=== PATIENT | female | born 1940 | race Caucasian/White ===

== ENCOUNTER 2016-09-24 09:29 | Outpatient (CLI) | payer MEDICARE, OTHER ==
[2015-12-15 02:03] VITALS: BP 129/72
[2016-09-24 09:35] LABS: BASOPHILS % 0.3 (0.0-1.5); EOSINOPHILS % 1.7 % (0.0-6.8); LYMPHOCYTES # 1.2 # k/uL (0.6-4.0); MEAN CORPUSCULAR HEMOGLOBIN 32.9 pg (28.0-34.0); MONOCYTES # 0.3 # k/uL (0.0-0.9); MONOCYTES % 5.1 % (0.0-11.0); NEUTROPHILS # 3.4 # k/uL (1.4-7.7)
[2016-09-24 09:58] LABS: eGFR (African) > 60; eGFR (Non-African) > 60
== END 2016-09-24 09:30 ==
LOC: LABRHC 09:29
PROVIDERS: ATTEND Family Medicine
DX: R63.4 Abnormal weight loss (principal); E78.00 Pure hypercholesterolemia, unspecified; E03.9 Hypothyroidism, unspecified
CPT/HCPCS: 36415; 80053; 80061; 84443; 85025

== ENCOUNTER 2017-04-28 14:09 | Outpatient (CLI) | payer MEDICARE, OTHER ==
[2015-12-15 02:03] VITALS: BP 129/72
[2017-04-28 14:30] LABS: BASOPHILS % 0.5 (0.0-1.5); EOSINOPHILS % 1.9 % (0.0-6.8); MEAN CORPUSCULAR HEMOGLOBIN 31.6 pg (28.0-34.0); MONOCYTES % 5.2 % (0.0-11.0); NEUTROPHILS # 4.2 # k/uL (1.4-7.7)
[2017-04-28 15:05] LABS: eGFR (African) > 60; eGFR (Non-African) > 60
== END 2017-04-28 14:10 ==
LOC: LAB 14:09
PROVIDERS: ATTEND Family Medicine
DX: E03.9 Hypothyroidism, unspecified (principal); R53.1 Weakness
CPT/HCPCS: 36415; 80053; 84443; 85025

== ENCOUNTER 2017-07-09 13:15 | Outpatient (CLI) | payer MEDICARE, OTHER ==
[2015-12-15 02:03] VITALS: BP 129/72
[2017-07-09 13:23] LABS: BASOPHILS % 0.6 (0.0-1.5); EOSINOPHILS % 0.8 % (0.0-6.8); MEAN CORPUSCULAR HEMOGLOBIN 31.3 pg (28.0-34.0); MEAN CORPUSCULAR VOLUME 95.1 fl (80.0-100.0); MONOCYTES % 4.9 % (0.0-11.0); NEUTROPHILS # 3.8 # k/uL (1.4-7.7)
[2017-07-09 13:54] LABS: eGFR (African) > 60; eGFR (Non-African) > 60
== END 2017-07-09 13:16 ==
LOC: LABRHC 13:15
PROVIDERS: ATTEND Family Medicine
DX: I95.9 Hypotension, unspecified (principal)
CPT/HCPCS: 36415; 80053; 85025

== ENCOUNTER 2018-05-26 09:15 | Outpatient (CLI) | payer MEDICARE, OTHER ==
[2015-12-15 02:03] VITALS: BP 129/72
[2018-05-26 09:20] LABS: eGFR (Non-African) > 60
[2018-05-27 08:19] LABS: MEAN CORPUSCULAR HEMOGLOBIN 31.9 pg (28.0-34.0)
== END 2018-05-26 09:16 ==
LOC: LABRHC 09:15
PROVIDERS: ATTEND Family Medicine
DX: E78.2 Mixed hyperlipidemia (principal)
CPT/HCPCS: 80053; 80061; 84443; 85027

== ENCOUNTER 2018-08-16 15:00 | Outpatient (CLI) | payer MEDICARE, OTHER ==
[2015-12-15 02:03] VITALS: BP 129/72
[2018-08-17 14:01] LABS: SOURCE: SWAB IN VTM
== END 2018-08-16 15:03 ==
LOC: LABRHC 15:00
PROVIDERS: ATTEND Family Medicine
DX: R05 Cough (principal); B97.4 Respiratory syncytial virus as the cause of diseases classified elsewhere
CPT/HCPCS: 87486; 87581; 87633; 87798

== ENCOUNTER 2019-03-26 18:27 | Emergency (ER) | payer MEDICARE, OTHER ==
--- NOTE | 2019-03-26 18:35 | ED Physician Documentation ---
General Adult - HISTORIAN Historian: patient - HPI Stated Complaint: seeing children and others in her house and high blood pressure Chief Complaint: General Adult Onset: other (the hallucinations started over a year ago and she had a work up and she has had these on and off per daughter. Although she has not mentioned having any in a while today she told the daughter she could see children in her home and she has had some increased generalized weakness ) Timing: still present Severity: mild Further Comments: yes (Per daughter this all started over a year ago with the hallucinations and she was referred to the [facility] for work up and the pt refused to stay. She has had on and off issues. Daughter was concerned because tonight they seemed to be increaed. Pt denies any pain.) Last known Well Code/Unknown Code: Unknown - ROS CONST: no problems MS/SKIN/LYMPH: denies: joint pain, rash NEURO/PSYCH: denies: headache, fainting, dizziness, tingling, numbness - PAST HX Past History: other (hypothyroidism and daughter states she found pills that should be taken ) Immunizations: UTD Allergies/Adverse Reactions: Allergies Allergy/AdvReac Type Severity Reaction Status Date / Time epinephrine Allergy Verified 03/26/19 19:09 - SOCIAL HX Smoking History: non-smoker Alcohol Use: none Drug Use: none - FAMILY HX Family History: No - VITAL SIGNS Vital Signs: Vital Signs Temp Pulse Resp BP Pulse Ox 129/72 12/15/15 01:00 - REVIEWED ASSESSMENTS Nursing Assessment Reviewed: Yes Vitals Reviewed: Yes Progress - Progress Progress: 2100: no current complaints other than presenting issues DG 2149: discussed results and plan with pt and daughter. They are confused on what to do with her due to the hallucinations although I did discuss this is an ongoing issue and the daughter did state pt refused the inpt help Dr Leigh set up for the pt. She is aware it is my recommendation someone stay with the pt until a resolution on what the end decision is on her care. She is to call Dr Leigh Thursday for follow up ED Results Lab/Radiology - Radiology Radiology Impressions: Computed tomography head without contrast History: Mental status change Findings: Transverse brain sections are obtained without contrast revealing mild global brain atrophy and extensive chronic small vessel ischemic gliosis throughout much of the cerebral white matter. De La Fuente-white differentiation is intact. There is no intracranial hemorrhage, mass effect, fluid collection, or skull lesion. 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 Electronically signed on Mar 26, 2019 7:46:08 PM CDT by: Femi Mortensen General Adult Physical Exam - PHYSICAL EXAM GENERAL APPEARANCE: no distress EENT: eye inspection normal, ENT inspection normal, SUMIT NECK: normal inspection RESPIRATORY: no resp distress, chest non-tender, breath sounds normal CVS: reg rate & rhythm, heart sounds normal, equal pulses ABDOMEN: soft, normal bowel sounds, no distension BACK: normal inspection, no CVA tenderness SKIN: warm/dry, normal color EXTREMITIES: non-tender, normal range of motion, no evidence of injury, no edema NEURO: oriented X3, CN's nml as tested, motor nml, sensation nml, mood/affect nml, cognition normal Discharge Clincal Impression: Hallucination, visual Referrals: Lachelle Leigh MD [Primary Care Provider] - 2 Days Comments: 1. Continue same meds 2. Call Dr Leigh for appt Thursday 3. Someone should stay with the pt at home 4. Return to ER for increased concerns Condition: Stable Disposition: 01 HOME, SELF-CARE Decision to Admit: NO Date of Decison to Admit: 03/26/19 Decision Time: 22:06
[2019-03-26] MEDS ORDERED: 0.9 % SODIUM CHLORIDE 1,000 ML IV ONE ×2 (19:14→20:54)
[2019-03-26 20:22] LABS: BASOPHILS % 0.3 % (0.0-1.5); NEUTROPHILS # 5.5 # k/uL (1.4-7.7)
[2019-03-26 20:30] LABS: eGFR (Non-African) 38
--- NOTE | 2019-03-26 20:47 | Diagnostic Imaging Report ---
VIKKI DUENAS [facility] [address] [facility] [address] [place], [place]. [address] Report Submission Date: Mar 26, 2019 7:46:08 PM CDT Patient Study Name: JACKIE HUGHES Date: Mar 26, 2019 7:22:47 PM CDT Modality Type: CT Gender: F Description: CT HEAD W/O : 36 Institution: [facility] Physician: VIKKI DUENAS Computed tomography head without contrast History: Mental status change Findings: Transverse brain sections are obtained without contrast revealing mild global brain atrophy and extensive chronic small vessel ischemic gliosis throughout much of the cerebral white matter. De La Fuente-white differentiation is intact. There is no intracranial hemorrhage, mass effect, fluid collection, or skull lesion. 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 Electronically signed on Mar 26, 2019 7:46:08 PM CDT by: Femi MANE
[2019-03-26 21:58] VITALS: BP 100/54
[2019-03-26 23:25] LABS: APPEARANCE,URINE CLEAR (CLEAR); COLOR,URINE YELLOW (YELLOW); OCCULT BLOOD,URINE NEGATIVE (NEGATIVE); UROBILINOGEN URINE 0.2 Eu (0.2-1.0)
== END 2019-03-26 22:19 | disposition home or self-care (01) ==
LOC: ED 18:27
DX: R44.3 Hallucinations, unspecified (principal)
CPT/HCPCS: 51701; 70450; 80053; 80320; 81002; 85025; 85610; 96360; 96361; 99283; 99284; G0480; J7030; S1016